=== PATIENT | female | born 1960 | race Native Hawaiian/Other Pacific Islander ===

== ENCOUNTER 2016-06-18 13:58 | Outpatient (CLI) | payer OTHER | END 2016-06-18 13:59 | disposition home or self-care (01) | DX: Z12.31 Encounter for screening mammogram for malignant neoplasm of breast (principal) ==

== ENCOUNTER 2016-10-12 10:56 | Day surgery (SDC) | payer OTHER ==
[2016-10-12] MEDS ORDERED: LACTATED RINGERS 1,000 ML IV ONE (11:11)
[2016-10-12] MEDS ORDERED: MIDAZOLAM 2 MG/2 ML VIAL IVP ONE (12:36)
[2016-10-12] MEDS ORDERED: fentaNYL 100 MCG/2 ML VIAL IVP ONE (12:36)
[2016-10-12 14:18] VITALS: BP 117/54
== END 2016-10-12 10:57 | disposition home or self-care (01) ==
LOC: SDS 10:56
PROVIDERS: ATTEND Surgery
PROC: 0DJD8ZZ Inspection of Lower Intestinal Tract, Via Natural or Artificial Opening Endoscopic (ICD-10-PCS; principal; 2016-10-12 12:15)
DX: Z86.010 Personal history of colon polyps (principal); Z83.3 Family history of diabetes mellitus
CPT/HCPCS: 45378; J7120

== ENCOUNTER 2017-10-03 13:48 | Outpatient (CLI) | payer OTHER ==
--- NOTE | 2017-10-05 09:15 | Mammography Report ---
Procedure Date: 10/03/2017 Accession Number: [id number] / [id number] Procedure: [facility]N - Screening Mammo Dig Bilat CPT Code: FULL RESULT: EXAM: Screening Mammo Dig Bilat DATE: 10/03/2017 2:04 PM CLINICAL HISTORY: 57 year-old nulliparous female presents for screening mammography. TECHNIQUE: Bilateral CC and MLO views were obtained. COMPARISON: 06/18/2016, 12/12/2014. FINDINGS: The breasts demonstrate extremely dense parenchyma bilaterally, limiting the sensitivity of mammography. No suspicious masses, clustered microcalcifications, or regions of architectural distortion are identified. IMPRESSION: Negative examination RECOMMENDATION: Routine annual screening unless otherwise clinically indicated. BIRADS CATEGORY 1: Negative STANDARD QUALIFYING STATEMENTS: 1. This examination was reviewed with the aid of Computer-Aided Detection (CAD). 2. A negative or benign imaging report should not delay biopsy if clinically suspicious findings are present. Consider surgical consultation if warrented. More than 5% of cancers are not identified by imaging. 3. Dense breasts may obscure an underlying neoplasm.
== END 2017-10-03 13:49 | disposition home or self-care (01) ==
LOC: DI.N 13:48
PROVIDERS: ATTEND Family Medicine
DX: Z12.31 Encounter for screening mammogram for malignant neoplasm of breast (principal)
CPT/HCPCS: 77067

== ENCOUNTER 2022-06-24 12:22 | Outpatient (CLI) | payer BC | END 2022-06-24 12:23 | disposition home or self-care (01) | LOC: DI 12:22 | PROVIDERS: ATTEND Family Medicine | DX: R01.1 Cardiac murmur, unspecified (principal); I07.1 Rheumatic tricuspid insufficiency; I77.810 Thoracic aortic ectasia | CPT/HCPCS: 93306 ==